=== PATIENT | male | born 1975 | race Caucasian/White ===

== ENCOUNTER 2020-03-15 09:58 | Outpatient (CLI) | payer OTHER, SELFPAY ==
[2020-03-15 12:43] LABS: Cholesterol 151 mg/dL (<200); HDL Cholesterol 74 mg/dL (40-60); TSH (W/Ref FT4) 1.25 uIU/mL (0.36-3.74)
[2020-03-15 12:55] LABS: Triglyceride < 25 mg/dL (<150)
[2020-03-15 13:10] LABS: LDL CHOLESTEROL 72 mg/dL (<100)
[2020-03-16 11:10] LABS: Varicella IgG Antibody Positive (See Note)
[2020-03-16 11:13] LABS: Measles IgG Antibody Positive (See Note)
[2020-03-16 11:16] LABS: Mumps Antibody IgG Positive (See Note)
[2020-03-16 11:18] LABS: Rubella IgG Ab (UVM) Positive (See Note)
== END 2020-03-15 10:18 ==
PROVIDERS: PCP Nurse Practitioner Family; Visit Provider Nurse Practitioner Family
DX: Z13.220 Encounter for screening for lipoid disorders (principal); Z13.1 Encounter for screening for diabetes mellitus; Z13.29 Encounter for screening for other suspected endocrine disorder; Z01.84 Encounter for antibody response examination
CPT/HCPCS: 36415; 80061; 83721; 86787; 83036; 84443; 86735; 86762; 86765

== ENCOUNTER 2020-05-11 09:41 | Outpatient (CLI) | payer OTHER, SELFPAY ==
[2020-05-12 13:23] LABS: COVID-19 RT-PCR UVMMC Result Negative (Negative)
== END 2020-05-11 09:42 | disposition home or self-care (01) ==
LOC: LBO 09:41
PROVIDERS: PCP Nurse Practitioner Family; Visit Provider Nurse Practitioner Family
DX: Z20.828 Contact with and (suspected) exposure to other viral communicable diseases (principal)
CPT/HCPCS: U0003

== ENCOUNTER 2022-03-14 07:33 | Day surgery (SDC) | payer OTHER, SELFPAY ==
[2022-03-14 07:50] VITALS: BP 118/78; PULSE 74; RESP 16; TEMP 36.5; O2SAT 98
--- NOTE | 2022-03-14 08:07 | W.ANESPRE ---
General Info Date of Service Date Performed: 03/14/22 Height: 5 ft 10.5 in Weight: 77.4 kg Body Mass Index (BMI): 24.1 Surgical Procedure: Operation Date: 03/14/22 09:05 Proposed Procedure Side Surgeon p Colonoscopy possible Polypectomy Duane Timmons MD Meds Allergies and Home Medications Allergies Allergy/AdvReac Type Severity Reaction Status Date / Time No Known Allergies Allergy Verified 03/14/22 07:54 Home Medication Medication Instructions Recorded pantoprazole 40 mg tablet,delayed 40 mg PO QAM #90 tab-caps 03/21/21 release bisacodyl 5 mg tablet,delayed 5 mg PO ONCE colonscopy bowel prep 02/21/22 release (Dulcolax (bisacodyl)) #4 tabs polyethylene glycol 3350 17 238 g PO ONCE colonoscopy prep 02/21/22 gram/dose oral powder #238 grams Current Visit Medications: Current Medications Generic Name Dose Route Start Last Admin Trade Name Freq PRN Reason Stop Dose Admin Ringer's Solution 1,000 mls @ 80 mls/hr 03/14/22 06:00 IV 04/12/22 23:59 INFUSION JIMMY IV Miscellaneous Supplies 1 each 03/14/22 06:00 Iv Access IV 04/12/22 23:59 DIRECTED JIMMY Sodium Chloride 0 ml 03/14/22 06:00 Normal Saline Flush 10 Ml Syr IV 04/12/22 23:59 PRN PRN Sodium Chloride 0 ml 03/14/22 06:00 Normal Saline 10 Ml Vial IJ 04/12/22 23:59 DIRECTED PRN Sterile Water 0 ml 03/14/22 06:00 Water,Injection,Sterile 10 Ml Vial IJ 04/12/22 23:59 DIRECTED PRN PFSH Active Problems Active Problems: Problem Status Onset Code Gastroesophageal reflux disease K21.9 Skin lesion L98.9 Low back pain M54.50 Medical History Medical History (Updated 03/14/22 @ 07:57 by Claudia Urrutia) Chronic GERD History of chronic back pain History of reduction of open fracture Left radius Tonsillar hypertrophy (10/24/15) Medical History Comments:: pt. 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 [employer] aware 0800 Surgical History Surgical History (Updated 03/14/22 @ 07:56 by Claudia Urrutia) History of open reduction and internal fixation (ORIF) procedure L forearm Hx of appendectomy Hx of wisdom tooth extraction Tobacco Smoking/Tobacco Use Status: Never Second hand exposure: Yes Alcohol Alcohol Intake: current Alcohol intake frequency: a few times a week Alcohol type: beer Substance Use Substance use type: does not use Details: alcohol: t-5 Vital Signs and Lab Results Vital Signs Most Recent Vital Signs in EMR: Most Recent Vital Signs Temp Pulse Resp BP Pulse Ox 36.5 C 74 16 118/78 98 03/14/22 07:50 03/14/22 07:50 03/14/22 07:50 03/14/22 07:50 03/14/22 07:50 Lab Results Blood Type / Crossmatch: No Data to Display Complete Blood Count: No Data to Display Complete Metabolic Panel: No Data to Display Liver Function Panel: No Data to Display Coagulation Panel: No Data to Display Cardiac Panel: No Data to Display Arterial Blood Gas: No Data to Display Venous Blood Gas: No Data to Display Pancreas Panel: No Data to Display Thyroid Panel: No Data to Display Infectious Disease: No Data to Display Blood Cultures: No Data to Display Toxicology Panel: No Data to Display Anesthesia Assessment and Plan Anesthesia History Personal History: No History of Anesthesia Complications Family History: No Family History of Anesthesia Complications Exercise Tolerance Exercise Tolerance: Metabolic Equivalents>4 Pertinent Negatives Pertinent Negatives: No Major Cardiovascular Symptoms or Complaints and No Major Pulmonary Symptoms or Complaints Cardiac & Pulmonary Exam Cardiac Exam: Normal S1/S2 Heart Sounds Pulmonary Exam: Clear Bilateral Breath Sounds Implantable Cardiac Device Does patient have a Pacemaker or an ICD?: No Airway Exam Known Difficult Airway: No Mallampati Class: 1 Mouth Opening: Normal (> 3cm) Thyromental Distance: Greater than 3 cm Facial Hair: Full Jimenez Neck Range of Motion: Full ROM Neck Circumference: Normal Teeth Condition: Normal Dentition ASA Classification ASA Score: ASA 2 Emergency Case?: No NPO Status NPO Status: NPO Clears >2 hours, Solids >8 hours Anesthesia Plan Resuscitation Status: Full Code Anesthesia Technique: General Anesthesia Airway Planned: Natural Airway Monitors Used: Standard Monitors
[2022-03-14 08:08] VITALS: BMI 24.1
--- NOTE | 2022-03-14 08:11 | W.COLOREPORT ---
Date of service: 03/14/22 Time of Service: 09:45 Colonoscopy Report Procedure Description: Procedures performed: 1. Colonoscopy 2. Snare polypectomy x1 3. Cold forceps polypectomy x3 4. Ablation/fulguration/destruction of polyp x1 Preoperative diagnosis: Screening colonoscopy Postoperative diagnosis: Colon polyps Surgeon: Jonah Timmons Anesthesia: Bharati Indication for procedure: 47-year-old man due for screening colonoscopy with significant family history of a mother who has colon polyps and maternal uncle who had colon cancer. He had an appendectomy as a child. Findings: The transverse colon is long and redundant and forms an alpha loop. A 2-3 mm sessile polyp was found in the transverse colon and removed with cold forceps technique. In the sigmoid colon a 3-5 mm sessile polyp was removed with hot snare technique. In the proximal rectum a very flat 3-5 mm sessile polyp was removed with cold forceps. Further along are a couple other 2-3 mm polyps that appear hyperplastic in nature and those were removed separately with cold forceps technique. Yet another polyp was destroyed/ablated with the tip of the hot snare. Surveillance/follow-up recommendations: In 3 years. Complications: None Blood loss: Minimal Prep: Excellent Procedure in detail: Written consent was obtained from the patient who was in agreement with the risks, benefits and indications of the procedure.? We went to the endoscopy suite and laid the patient in left lateral decubitus position.? Anesthesia was administered which was tolerated well.? A timeout was performed and when we are all in agreement we began the procedure. Digital rectal exam and visual examination was performed and within normal limits.? A well?lubricated colonoscope was advanced all the way to the cecum identified by the ileocecal valve(no remanent appendiceal orifice was identified).? It was then slowly withdrawn.?? Retroflexion was performed in the rectum.? The findings/interventions are noted above. The scope was then removed and the patient tolerated the procedure well and was then taken back to the PACU in hemodynamically stable condition.
[2022-03-14] MEDS: Lactated Ringers 1,000 ML 80 ML IV (08:15)
--- NOTE | 2022-03-14 09:25 | BOWEL_PTH ---
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
[2022-03-14 09:56] VITALS: BP 109/97; PULSE 68; RESP 16; TEMP 36.2; O2SAT 99
--- NOTE | 2022-03-14 10:24 | W.ANESPOSTOP ---
Postoperative Evaluation Date, Time and Location Date Performed: 03/14/22 Time Performed: 10:24 Patient Location: Day Surgery Unit Vital Signs Most Recent Imported Vital Signs: Most Recent Vital Signs Temp Pulse Resp BP Pulse Ox 36.2 C L 68 16 109/97 H 99 03/14/22 09:56 03/14/22 09:56 03/14/22 09:56 03/14/22 09:56 03/14/22 09:56 Pain Score Most Recent Pain Score: Most Recent Pain Score Pain Level 0 03/14/22 09:56 Assessment Mental Status: Awake (Alert & Oriented to Patient Baseline) Airway and Respiratory Function: Patent airway with normal (patient baseline) respiratory exam Cardiovascular Function: Hemodynamically Stable Hydration Status: Adequately Hydrated Nausea & Vomiting: No Nausea or Vomiting Pain: Pt. Denies Any Pain Peripheral Nerve Block: Patient did not receive a nerve block
[2022-03-14 10:31] VITALS: BP 97/63; PULSE 53; RESP 18; TEMP 36.3; O2SAT 100
== END 2022-03-14 10:58 | disposition home or self-care (01) ==
PROVIDERS: PCP Nurse Practitioner Family; Visit Provider Student in an Organized Health Care Education/Training Program
PROC: 0DJD8ZZ Inspection of Lower Intestinal Tract, Via Natural or Artificial Opening Endoscopic (ICD-10-PCS; CPT 45378; principal; 2022-03-14 09:00)
DX: Z12.11 Encounter for screening for malignant neoplasm of colon (principal); Z80.0 Family history of malignant neoplasm of digestive organs; K63.5 Polyp of colon; K62.1 Rectal polyp
CPT/HCPCS: 45380; 45388; 45385; 88305; J2704

== ENCOUNTER 2023-04-07 05:20 | Outpatient (CLI) | payer OTHER, SELFPAY ==
[2023-04-07 13:28] LABS: Cholesterol 162 mg/dL (<200); HDL Cholesterol 78 mg/dL (40-60); Triglyceride <25 mg/dL (<150)
[2023-04-07 13:39] LABS: LDL CHOLESTEROL 74 mg/dL (<100)
== END 2023-04-07 05:21 | disposition home or self-care (01) ==
LOC: LBO 05:20
PROVIDERS: PCP Nurse Practitioner Family; Visit Provider Nurse Practitioner Family
DX: Z13.220 Encounter for screening for lipoid disorders (principal)
CPT/HCPCS: 36415; 80061; 83721

== ENCOUNTER → 2023-08-24 12:40 | Outpatient (CLI) | payer OTHER, SELFPAY ==
--- NOTE | 2023-08-24 13:13 | DI.RAD_ITS ---
Exam(s) XR ANKLE RT COMPLETE EXAM: XR ANKLE RT COMPLETE CLINICAL HISTORY: evaluate fx, rt ankle pain, M25.571. TECHNIQUE: 2D digital imaging was performed. Three views. COMPARISON: No exams were available for comparison FINDINGS: BONES: No acute fracture is present. No bony destructive lesion is seen. JOINTS: The ankle mortise is normally aligned. SOFT TISSUE: Normal mild swelling. IMPRESSION: No acute bony abnormality. DATA REPOSITORY: RADIATION DOSE DELIVERED:
== END ==
PROVIDERS: PCP Nurse Practitioner Family; Visit Provider Nurse Practitioner Family
DX: M25.571 Pain in right ankle and joints of right foot (principal)
CPT/HCPCS: 73610

== ENCOUNTER 2023-12-25 11:32 | Emergency (ER) | payer BC, SELFPAY ==
[2023-12-25 11:36] VITALS: BP 148/87; PULSE 89; RESP 16; TEMP 36.5; O2SAT 98
[2023-12-25 11:48] VITALS: BP 135/80; PULSE 92; RESP 20; O2SAT 100
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
[2023-12-25] MEDS: Ondansetron O.D.T. 4 MG TABEF PO (12:20)
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
[2023-12-25 13:35] LABS: Abs Immature Grans 0.07 10^3/uL (0.0-0.06); Absolute Basophil Count 0.03 10^3/uL (0.0-0.2); Absolute Lymphocyte Count 0.52 10^3/uL (1.2-3.4); Absolute Monocyte Count 0.66 10^3/uL (0.1-0.8); Basophils % 0.2 %; Eosinophils % 0.1 %; HCT 43.7 % (40.0-50.0); HGB 14.8 g/dL (13.5-17.5); Immature Grans % 0.5 %; Lymphocytes % 3.4 %; MCH 32.1 pg (27.0-33.0); MCHC 33.9 % (32.0-36.0); MCV 95 fL (80-95); MPV 10.5 fL (8.0-11.0); Monocytes % 4.3 %; Neutrophils % 91.5 %; Platelet Count 168 10^3/uL (130-400); RBC 4.61 10^6/uL (4.36-5.78); RDW-SD 42.3 fL; WBC 15.36 10^3/uL (4.4-10.8)
[2023-12-25 13:37] LABS: Absolute Eosinophil Count 0.02 10^3/uL (0.0-0.7); Absolute Neutrophil Count 14.05 10^3/uL (1.2-6.7)
[2023-12-25] MEDS: HYDROmorphone 2 MG/ML SYR 1 MG IVP (13:37)
[2023-12-25] MEDS: ACETAMINOPHEN 500 MG/50 ML BAG 200 MG IVPB (13:38)
[2023-12-25] MEDS: AMPICILLIN/SULBACTAM 3 GM in Normal Saline 100 ML IVPB (13:39)
[2023-12-25 13:54] LABS: ALT 19 U/L (16-63); AST 17 U/L (15-37); Alkaline Phosphatase 52 U/L (46-116); Anion Gap 9.4 mmol/L (3-11); BUN 15 mg/dL (7-18); Bilirubin, Total 1.86 mg/dL (0.2-1.0); CO2 29.6 mmol/L (21.0-32.0); Calcium 9.1 mg/dL (8.5-10.1); Chloride 105 mmol/L (98-107); Estimated GFR 92.26 (mL/min/1.73m2); Glucose 122 mg/dL (74-106); Potassium 3.8 mmol/L (3.5-5.1); Sodium 144 mmol/L (136-145); Total Protein 7.1 g/dL (6.4-8.2); Troponin I 11 ng/L (<or=76)
[2023-12-25 14:07] VITALS: BP 125/67; PULSE 82; RESP 16; O2SAT 97
[2023-12-25 14:25] VITALS: BP 127/81; PULSE 84; RESP 16; O2SAT 98
== END 2023-12-25 14:26 | disposition short-term general hospital (02) ==
PROVIDERS: Emergency Provider Student in an Organized Health Care Education/Training Program; PCP Nurse Practitioner Family
DX: S02.92XA Unspecified fracture of facial bones, initial encounter for closed fracture (principal); S02.2XXA Fracture of nasal bones, initial encounter for closed fracture; S02.40DA Maxillary fracture, left side, initial encounter for closed fracture; S02.32XA Fracture of orbital floor, left side, initial encounter for closed fracture; R51.9 Headache, unspecified; R11.0 Nausea; Z23 Encounter for immunization; I10 Essential (primary) hypertension; V18.0XXA Pedal cycle driver injured in noncollision transport accident in nontraffic accident, initial encounter; H53.8 Other visual disturbances
CPT/HCPCS: 80053; 90471; 90715; 96365; 96375; 99285; 70450; 70480; 84484; 85025; J0131; J0295; J1171